=== PATIENT | male | born 1945 | race Caucasian/White ===

== ENCOUNTER 2018-02-02 22:28 | Emergency (ER) | payer OTHER, MEDICAID ==
[~2018-02-02] VITALS: Ht 172.7 cm; Wt 84.1 kg
[2018-02-02 22:30] VITALS: BP 160/77
--- NOTE | 2018-02-02 22:35 | NUR ---
pt assisted back to lobby in stable condition
[2018-02-02] MEDS ORDERED: NACL 0.9% 1,000 ML IV ONE (23:53)
[2018-02-02] MEDS ORDERED: ONDANSETRON 4 MG/2 ML VIAL IVP ONE (23:55)
[2018-02-02] MEDS ORDERED: MORPHINE SULFATE 4 MG/ML SYR IVP ONE (23:55)
--- NOTE | 2018-02-03 | NUR ---
PATIENT TO ER BED 6.
--- NOTE | 2018-02-03 00:02 | NUR ---
Dr. Penn evaluating patient at bedside.
--- NOTE | 2018-02-03 00:10 | NUR ---
PATIENT IS A 72 Y/O MALE WHO PRESENTS TO THE ED C/O ABD PAIN. PT STATES THAT IT STARTED SUDDENLY X3 DAYS AGO. PT REPORTS 8/10 ACHING RUQ PAIN THAT DOES NOT RADIATE. PT DENIES CP, SOB, N/V/D. PT AWAKE, ALERT, AMBULATORY, RR EVEN/UNLABORED. PT REPOSITIONED FOR COMFORT, BED IN LOWEST POSITION. ER MD DR. NICOLE NOTIFIED. WILL CONTINUE TO MONITOR.
--- NOTE | 2018-02-03 00:20 | NUR ---
PATIENT TAKEN TO CT WITH TECH.
[2018-02-03 00:27] LABS: BASOPHILS # (AUTO) 0.1 K/uL (0.00-0.22); BASOPHILS % (AUTO) 0.9 % (0.0-2.0); EOSINOPHILS # (AUTO) 0.2 K/uL (0-0.4); EOSINOPHILS % (AUTO) 2.5 % (0.0-4.0); HEMATOCRIT 44.1 % (36-52); HEMOGLOBIN 15.1 g/dL (12.0-18.0); LYMPHOCYTES # (AUTO) 3.7 K/uL (2.0-11.5); MEAN CORPUSCULAR HEMOGLOBIN 30 pg (27-31); MEAN CORPUSCULAR HGB CONC 34 g/dL (33-37); MEAN CORPUSCULAR VOLUME 87.6 fL (80-94); MONOCYTES # (AUTO) 0.7 K/uL (0.8-1.0); NEUTROPHILS # (AUTO) 3.6 K/uL (1.8-7.7); NEUTROPHILS % (AUTO) 43.6 % (42.2-75.2); PLATELET COUNT (AUTO) 274 K/uL (140-450); RED BLOOD CELL COUNT(AUTO) 5.04 MIL/uL (4.20-6.10); RED CELL DISTRIBUTION WIDTH 14.1 % (11.6-13.7); WHITE BLOOD COUNT (AUTO) 8.3 K/uL (4.8-10.8)
--- NOTE | 2018-02-03 00:39 | NUR ---
PATIENT RETURN FROM CT.
[2018-02-03 00:42] LABS: ALBUMIN 4.2 g/dL (3.4-5.0); ANION GAP 8.8 (8-16); ASPARTATE AMINOTRANSFERASE 31 U/L (15-37); CARBON DIOXIDE 30.3 mmol/L (21-32); CHLORIDE 104 mmol/L (98-107); CREATININE 0.9 mg/dL (0.7-1.3); GLUCOSE 143 mg/dL (74-106); LIPASE 206 U/L (73-393); POTASSIUM 4.1 mmol/L (3.5-5.1); SODIUM SERUM 139 mmol/L (136-145); TOTAL BILIRUBIN 0.5 mg/dL (0.0-1.0); UREA NITROGEN, BLOOD 7 mg/dL (7-18)
[2018-02-03 01:23] LABS: APPEARANCE,URINE CLEAR (CLEAR); BILIRUBIN,URINE NEGATIVE (NEGATIVE); BLOOD, URINE 1+ (NEGATIVE); COLOR,URINE YELLOW (YELLOW); LEUKOCYTE ESTERASE ,URINE NEGATIVE (NEGATIVE); NITRITE, URINE NEGATIVE (NEGATIVE); UGLUCOSE NEGATIVE (NEGATIVE)
--- NOTE | 2018-02-03 01:30 | NUR ---
PATIENT RESTING AT THIS TIME. NO SIGNS OF DISTRESS.
[2018-02-03 01:42] LABS: RBC,URINE 3-10 (FEW) /HPF (0-5); WBC,URINE 0-5 (RARE) /HPF (0-5)
--- NOTE | 2018-02-03 01:47 | NUR ---
Marie oh in [facility] - 02/03/18 at [address] Pierce evaluating patient at bedside.
[2018-02-03] MEDS ORDERED: KETOROLAC 30 MG/ML VIAL IVP ONE (02:35)
[2018-02-03] MEDS ORDERED: KETOROLAC 30 MG/ML VIAL ONE (02:40)
[2018-02-03 02:52] VITALS: BP 128/85
--- NOTE | 2018-02-03 02:52 | NUR ---
Patient discharged with v/s stable. Written and verbal after care instructions given and explained. Patient alert, oriented and verbalized understanding of instructions. Ambulatory with steady gait. All questions addressed prior to discharge. ID band removed. Patient advised to follow up with PMD. Rx of ACETAMINOPHEN 500MG AND ACYCLOVIR 800MG given. Patient educated on indication of medication including possible reaction and side effects. Opportunity to ask questions provided and answered.
== END 2018-02-03 02:52 | disposition home or self-care (01) ==
LOC: MED 22:28
DX: R10.31 Right lower quadrant pain (principal); B02.9 Zoster without complications
CPT/HCPCS: 36415; 74176; 80053; 81001; 83690; 85025; 96374; 96375; 99285; J1885; J2270; J2405; J7030